=== PATIENT | female | born 1970 | race Caucasian/White ===

== ENCOUNTER 2019-11-14 01:10 | Emergency (ER) | payer OTHER ==
[~2019-11-14] VITALS: Ht 167.6 cm; Wt 90.7 kg
--- NOTE | 2019-11-14 01:10 | NUR ---
PT PRETTY BLS. TAKEN TO BED 2
[2019-11-14 01:17] VITALS: BP 127/65
--- NOTE | 2019-11-14 01:50 | NUR ---
49 Y/O F C/O FUNGAL INFECTION ON TONGUE. WHITE PATCHES ON TONGUE NOTED. DENIES ANY PAIN, COUGH, FEVER. LUNG SOUNDS CLEAR. SINUS BRADYCARDIA ON MONITOR. O2 SATURATION 96%. PMH: DENIES NKA
--- NOTE | 2019-11-14 01:51 | NUR ---
PT ALSO STATES SHE HAS SCABIES.
[2019-11-14 02:07] LABS: BASOPHILS % (AUTO) 0.6 % (0.0-2.0); EOSINOPHILS # (AUTO) 0.1 K/uL (0-0.4); HEMOGLOBIN 14.3 g/dL (12.0-16.0); LYMPHOCYTES # (AUTO) 1.8 K/uL (2.5-16.5); LYMPHOCYTES % (AUTO) 26.1 % (20.5-51.1); MEAN CORPUSCULAR HEMOGLOBIN 34 pg (27-31); MEAN CORPUSCULAR HGB CONC 34 g/dL (33-37); MEAN CORPUSCULAR VOLUME 98.7 fL (80-94); MONOCYTES # (AUTO) 0.6 K/uL (0.8-1.0); MONOCYTES % (AUTO) 8.2 % (1.7-9.3); NEUTROPHILS # (AUTO) 4.3 K/uL (1.8-7.7); NEUTROPHILS % (AUTO) 63.1 % (42.2-75.2); PLATELET COUNT (AUTO) 135 K/uL (140-450); RED BLOOD CELL COUNT(AUTO) 4.26 MIL/uL (4.20-5.40); RED CELL DISTRIBUTION WIDTH 13.5 % (11.6-13.7); WHITE BLOOD COUNT (AUTO) 6.8 K/uL (4.8-10.8)
[2019-11-14 02:22] LABS: ALBUMIN 3.7 g/dL (3.4-5.0); ANION GAP 10.3 (8-16); CARBON DIOXIDE 28.9 mmol/L (21-32); POTASSIUM 4.2 mmol/L (3.5-5.1); TOTAL BILIRUBIN 0.6 mg/dL (0.0-1.0)
[2019-11-14] MEDS ORDERED: NACL 0.9% 1,000 ML IV ONE (02:40)
--- NOTE | 2019-11-14 03:34 | NUR ---
IV INSERTED RHAND 20G. NS BOLUS RUNNING.
[2019-11-14] MEDS ORDERED: NITROFURANTOIN 100 MG CAP PO ONE (04:25)
--- NOTE | 2019-11-14 04:54 | NUR ---
PO ANTIBIOTIC GIVEN. PT TOLERATED WELL. WILL CONTINUE TO MONITOR.
[2019-11-14 05:14] VITALS: BP 120/87
== END 2019-11-14 05:14 | disposition home or self-care (01) ==
LOC: MED 01:10
DX: R05 Cough (principal); R53.1 Weakness; N30.00 Acute cystitis without hematuria; R00.1 Bradycardia, unspecified; D69.6 Thrombocytopenia, unspecified; E83.52 Hypercalcemia; N18.2 Chronic kidney disease, stage 2 (mild)
CPT/HCPCS: 36415; 71045; 80053; 81002; 81025; 84484; 85025; 93005; 96360; 99285; J7030; Q0092